=== PATIENT | male | born 1955 | race Two or more races ===

== ENCOUNTER 2019-07-07 12:36 | Outpatient (CLI) | payer MEDICAID ==
[~2019-07-07] VITALS: Ht 182.9 cm; Wt 117.9 kg
[2019-07-07 13:10] VITALS: BP 128/78
[2019-07-08] MEDS ORDERED: CBD (12:44)
[2019-07-08] MEDS ORDERED: ZANTAC150 MG ORAL (12:44)
--- NOTE | 2019-07-08 17:45 | Consultation ---
DATE OF CONSULTATION: 07/07/2019 CONSULTING PHYSICIAN: Josh Dietrich M.D. CHIEF COMPLAINT: Abdominal pain, GERD, diarrhea, and bloating. PAST MEDICAL HISTORY: Hemorrhoids, fibromyalgia. PAST SURGICAL HISTORY: Kidney removal. MEDICATIONS: Please see medication reconciliation list. FAMILY HISTORY: No family history of GI malignancies. SOCIAL HISTORY: The patient drinks two or three drinks per week. He used to smoke cigarettes, but he quit. No drug abuse. ALLERGIES: No known drug allergy. REVIEW OF SYSTEMS: Positive for abdominal pain, GERD, diarrhea, and bloating. PHYSICAL EXAMINATION: VITAL SIGNS: Temperature 97, blood pressure 122/78, pulse , and respirations 20. HEENT: Normocephalic and atraumatic. Sclerae anicteric. NECK: Supple. No evidence of obvious lymphadenopathy. CARDIOVASCULAR: Regular rate and rhythm. Plus S1 and S2. No obvious murmur. LUNGS: Clear to auscultation bilaterally. ABDOMEN: Positive bowel sounds. Soft and nontender. No rebound. No guarding. No peritoneal sign. EXTREMITIES: No cyanosis. No clubbing. No edema. ASSESSMENT AND PLAN: This is a 64-year-old male with chronic GERD, also needs a screening colonoscopy. Last colonoscopy over 5 years ago according to him, and he had polyps according to him. Plan is for the patient to get an endoscopy and colonoscopy. Risks and benefits of procedure was explained to him. Colonoscopy prep was given to him. We are waiting for authorization to schedule him. Josh Dietrich M.D. DR: RAND JOB#: [id number] CC:
== END 2019-07-07 14:36 | disposition home or self-care (01) ==
LOC: PAN 12:36
DX: R10.9 Unspecified abdominal pain (principal); K21.9 Gastro-esophageal reflux disease without esophagitis; R19.7 Diarrhea, unspecified; R14.0 Abdominal distension (gaseous); M79.7 Fibromyalgia; Z90.5 Acquired absence of kidney
CPT/HCPCS: G0463